=== PATIENT | female | born 1995 | race Caucasian/White ===

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

== ENCOUNTER 2017-05-21 20:01 | Emergency (ER) | payer OTHER ==
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
[2017-05-21 22:11] VITALS: BP 132/77
== END 2017-05-21 22:12 | disposition home or self-care (01) ==
LOC: ER 20:01
DX: S43.492A Other sprain of left shoulder joint, initial encounter (principal); S16.1XXA Strain of muscle, fascia and tendon at neck level, initial encounter; M79.7 Fibromyalgia; V46.0XXA Car driver injured in collision with other nonmotor vehicle in nontraffic accident, initial encounter

== ENCOUNTER 2019-04-12 02:18 | Inpatient (IN) ==
[2019-04-12 03:40] LABS: Cocaine Ur Negative (NEGATIVE); Urine Barbiturate Negative (NEGATIVE); Urine Benzodiazepines Negative (NEGATIVE); Urine Opiates Negative (NEGATIVE); Urine PCP Negative (NEGATIVE); Urine THC Negative (NEGATIVE)
[2019-04-12] MEDS ORDERED: RINGER'S SOLUTION,LACTATED 1,000 ML IV ONE (04:51)
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
[2019-04-12] MEDS ORDERED: OXYTOCIN 20 UNITS in RINGER'S SOLUTION,LACTATED 1,000 ML IV ONE (06:20)
[2019-04-12] MEDS: RINGER'S SOLUTION,LACTATED 1,000 ML IV PRN ×2 (06:40→08:00)
[2019-04-12] MEDS ORDERED: ceFAZolin SODIUM 1 GM VIAL ONE (06:47)
--- NOTE | 2019-04-12 07:02 | ANES ---
Anesthesia Pre Procedure Eval HOME MEDICATIONS valacyclovir 1 gram tablet 1,000 mg PO DAILY #30 tab 02/07/18 [Last Taken 04/11/19] Yxx026/FA/Omega3/Dha/Fish Oil [ Gummies] 1 ea PO DAILY 08/25/18 [Last Taken Unknown] Allergies/Adverse Reactions: Allergies Allergy/AdvReac Type Severity Reaction Status Date / Time amoxicillin Allergy Mild Swelling Verified 04/12/19 06:58 of Face latex Allergy Mild Hives Verified 04/12/19 06:58 marijuana Allergy Mild erythema, Verified 04/12/19 06:58 itching Penicillins Allergy Mild Hives Verified 04/12/19 06:58 - Planned Procedure Planned Procedure: RASH, HASN'T FELT BABY MOVE Medication List Reviewed:: Yes Allergies Verified: Yes Medical History (Last Reviewed 04/12/19 @ 07:01 by Matheus Vazquez CRNA) Anxiety and depression Onset Date: Unknown EDS (Isai-Danlos syndrome) Onset Date: ~2015 Endometriosis Onset Date: Unknown Fainting episodes Onset Date: Unknown Fibromyalgia Onset Date: Unknown Genital herpes Onset Date: ~2017 Heart murmur Onset Date: Unknown History of hysteroscopy Onset Date: ~07/07/18 laparoscopic tx of endometriosis Migraine Mitral valve prolapse Onset Date: Unknown Ovarian cyst Onset Date: Unknown bilateral UTI (urinary tract infection) Oligohydramnios Onset Date: ~2015 delivery (maternal condition) Onset Date: ~2015 Surgical History (Last Reviewed 04/12/19 @ 07:01 by Matheus Vazquez CRNA) H/O arthroscopic knee surgery (Acute) right Hx of tonsillectomy (Acute) H/O section Onset Date: ~11/11/15 Hx of cholecystectomy Onset Date: ~06/26/18 Family History (Last Reviewed 04/12/19 @ 07:01 by Matheus Vazquez CRNA) Father none Mother Depression Endometriosis Isai-Danlos syndrome Grandmother CVA (cerebral vascular accident) Grandfather Diabetes maternal Grandfather Myocardial infarction paternal Sister Endometriosis - Family Anesthesia History Family History:: no untoward family reactions to anesthesia, no familial bleeding tendencies, no family history of clotting disorders, no family history of premature - Airway/Neck/Teeth Within Normal Limits:: Yes Teeth Condition: intact Neck Exam: full range of motion Mallampatti Score: 2 Thyromental (T-M) distance: > 6 cm Mandibulo Hyoid distance: > 3 cm - Respiratory Respiratory Physical: lungs clear Smoking Status: Never smoker Sleep Apnea currently treated: No Sleep Apnea by current assessment: No - Cardiovascular Tolerate Activity: Good Heart Sounds: S1 & S2, Regular - Gastrointestinal NPO since: 2399 - Anesthesia Assessment and Plan ASA Class: PS, II, E Anesthesia Type Plan: Block - Bilateral TAP block for post op pain relief, Spinal
[2019-04-12] MEDS ORDERED: BUPIVACAINE HCL/EPINEPHRINE 50 ML VIAL IJ ONE (07:06)
[2019-04-12] MEDS ORDERED: SENNOSIDES 8.6 MG TABLET PO PRN (09:01)
[2019-04-12] MEDS ORDERED: ACETAMINOPHEN 325 MG TABLET PO PRN (09:01)
[2019-04-12] MEDS ORDERED: ONDANSETRON HCL/PF 2 MG/ML VIAL IV PRN (09:01)
[2019-04-12] MEDS ORDERED: SIMETHICONE 80 MG TAB.CHEW PO PRN (09:01)
[2019-04-12] MEDS ORDERED: BISACODYL 10 MG SUPP.RECT RC PRN (09:01)
--- NOTE | 2019-04-12 09:07 | OR ---
Operative Report - Dictated Report Narrative: Indication: 24-year old 2 para 1 at 38 3/7 weeks with prior section presents to labor and delivery in labor. status: Planned Pre Operative Diagnosis: 38 3/7 weeks intrauterine . Prior section. Labor. Post Operative Diagnosis: Same. Procedure: Repeat low transverse section. Abdominal scar revision -17 cm Surgeon: James Malagon DO Pelletizer Tender: OR Staff Anesthesia: Spinal, TAP block Estimated Blood Loss: 400 mL Urine Output: 300 mL clear urine Fluids Replacement: 1500 mL Drains: Mccrary to gravity Surgical Complications: None Specimens: Placenta to freezer Findings: Male born in cephalic presentation at 0807 on 04/12/2017 with Apgars 9 and 9, weight 3339g with nuchal cord x3. Normal uterus, tubes, ovaries. Dense thick fibrous scar tissue on the anterior abdominal fascia. Omental adhesions to the anterior peritoneal surface. Technique: The patient was taken to the operating room and placed in dorsal supine position with a left lateral tilt. After adequate spinal anesthesia, mccrary catheter inserted, SCDs placed, and 2 g of Ancef given preoperatively, the previous scar was excised in an elliptical fashion and the abdominal cavity was entered using sharp and blunt dissection. Two rolled laps were placed in the pericolic gutters on either side of the uterus. A transverse incision was made in the lower uterine segment and extended laterally and upwardly with digital traction. Clear fluid was noted upon amniotomy. The infant was delivered easily. The cord was clamped and cut and was handed off to awaiting mounter flutes and piccolos. The placenta was allowed to deliver spontaneously. The uterus was cleared of clot and debris. Uterine incision was closed with 0 Vicryl using a running stitch. A second imbricating layer was placed. Excellent hemostasis was noted. The rolled laps were removed from the abdominal cavitiy. The peritoneum was closed with a running 3-0 Monocryl. The same suture was used to approximate the rectus and pyramidalis muscles. The fascia was closed with a running 0 Vicryl. The subcutaneous layer was closed with a running 3-0 Monocryl. The same suture was used to approximate the subdermal layer. The skin was closed with a running 4-0 Monocryl and Dermabond. Sponge, lap, needle, and instrument count were correct x 2. Disposition: To post anesthesia care unit in good condition History for MU History for MU Definition: * The number of deliveries resulting in a live the patient experienced prior to current hospitalization * The previous delivery of live twins or any live multiple gestation is considered one live event. *If primagravida or nulliparous is documented select zero for the number of previous live births. Live Events: Live Events: 1
--- NOTE | 2019-04-12 09:22 | ANES ---
Post Anesthesia Discharge - Transfer of Care Transfer of Care handoff given to nurse: Yes - Discharge from PACU Discharge from PACU when meets criteria: Yes - Alert and comfortable
--- NOTE | 2019-04-12 09:23 | ANES ---
Anesthesia Procedure Note Procedure Note: ANESTHESIA PROCEDURE NOTE Date of Procedure: [04/12/2019 Time of procedure: 9:05 AM. Performed by: DESHAUN Jones CRNA, MSN Rn Acls: Tamara Rodas RN. Preprocedure diagnosis: Post section pain. Post procedure diagnosis: Same. Procedure: Bilateral TAP block Indications: Post section pain relief. Findings: See below. Details of the procedure: The patient was brought to PACU and placed in the supine position. The patient was prepped with chlorhexidine and using ultrasound guidance the 3 abdominal muscular planes were identified and lidocaine 1% was infiltrated to the skin of the intended injection site. Under ultrasound guidance the the internal oblique and transverse this abdominis muscle layers were approached with visualization of a 4 inch block needle until the tip of the needle rested in the plane between the muscles. 25 mL bupivacaine 0.25% with 1-200,000 epinephrine was injected and the procedure was repeated on the other side. Please see radiology/ultrasound report for details and images of the procedure. EBL: 0 Fluids: N/A. Specimen: N/A. Post procedure condition: The patient tolerated the procedure well. No complications were noted. Thank you for this consultation. Matheus Vazquez CRNA, ARNP, MSN
--- NOTE | 2019-04-12 09:33 | ANES ---
Post Anesthesia Assessment - Vital Signs Vitals: Last Vital Signs Temp 36.3 C 04/12/19 09:25 Pulse 95 04/12/19 09:25 Resp 18 04/12/19 09:25 BP 126/73 04/12/19 09:25 Pulse Ox 100 04/12/19 09:25 Airway Patency: Normal - Mental Status Level Of Consciousness: Awake, Alert, Appropriate - Pain Level Pain Score: 0 - N/V Assessment Nausea/Vomiting Presence: None Dehydration:: No
[2019-04-12] MEDS: IBUPROFEN 800 MG TABLET PO PRN ×2 (10:35→17:10)
[2019-04-12] MEDS: oxyCODONE HCL/ACETAMINOPHEN 1 TAB TABLET PO PRN ×4 (10:36→20:42)
[2019-04-12] MEDS: DOCUSATE SODIUM 100 MG CAPSULE PO SCH ×2 (12:39→20:41)
[2019-04-12] MEDS: ENOXAPARIN SODIUM 40 MG/0.4 ML SYRG SC SCH (17:07)
[2019-04-12] MEDS ORDERED: hydrOXYzine PAMOATE 50 MG CAPSULE PO PRN (23:09)
--- NOTE | 2019-04-12 23:13 | PN ---
Kenia Note - Interim Date: 04/12/19 Time: 23:11 Narrative: 04/12/19 23:11 Patient complains of itching on the palms of hands and soles of feet tonight. Did not have before today. Possible late onset IHCP. Will check CMP and give hydroxizine 25mg PRN. If no relief then will consider ursodiol.
[2019-04-12 23:58] LABS: Anion Gap 13.4 mmol/L (6.8-13.8); BUN/Creatinine Ratio 8.5 (9.0-21.6); Bilirubin, Total 0.2 mg/dL (0.0-1.1); Ca. Corrected For Albumin 9.3 mg/dL (8.4-10.2); Carbon Dioxide 24.3 mmol/L (24-32.6); Potassium 3.7 mmol/L (3.4-4.6); Total Protein 5.3 gm/dL (6.2-8.2)
[2019-04-13] MEDS: IBUPROFEN 800 MG TABLET PO PRN ×4 (01:21→23:23)
[2019-04-13] MEDS: oxyCODONE HCL/ACETAMINOPHEN 1 TAB TABLET PO PRN ×4 (01:21→23:22)
[2019-04-13] MEDS ORDERED: hydrOXYzine PAMOATE 25 MG CAPSULE ONE (01:28)
[2019-04-13] MEDS: hydrOXYzine PAMOATE 25 MG CAPSULE PO PRN ×2 (02:12→11:22)
[2019-04-13] MEDS ORDERED: ceFAZolin SODIUM 1 GM VIAL IV PRN (06:00)
[2019-04-13] MEDS: DOCUSATE SODIUM 100 MG CAPSULE PO SCH ×2 (08:41→21:13)
[2019-04-13] MEDS: PRENATAL VITS96/IRON FUM/FOLIC 1 TAB TABLET PO SCH (09:48)
--- NOTE | 2019-04-13 15:32 | PN ---
Subjective - Date and Time Seen Date: 04/13/19 Time: 15:31 Objective - Vitals Vitals: Last Vital Signs Temp 36.8 C 04/13/19 08:51 Pulse 80 04/13/19 14:55 Resp 16 04/13/19 14:55 BP 119/69 04/13/19 14:55 Pulse Ox 98 04/13/19 14:55 Patient denies complaints. Tolerating regular diet. Ambulating without difficulty. Pain well controlled. Lochia wnl. Abdomen - soft, appropriately tender Incision -clean, dry, intact uterus - firm, at umbilicus -1 no calf tenderness Impression: Post op day #1 s/p repeat section. Plan: Continue routine post-operative/ care - Abnormal Lab Findings Abnormal Lab Findings: Abnormal Lab Results 04/12/19 Range/Units 23:32 BUN/Creatinine Ratio 8.5 L (9.0-21.6) ALT 14 L (19-67) U/L Alkaline Phosphatase 171 H (50-170) U/L Total Protein 5.3 L (6.2-8.2) gm/dL Albumin 2.0 L (3.4-5.0) gm/dl Cauti Physician Documentation - Urinary Catheter Management Urethral (Ramos) Date of Insertion: 04/12/19 Time of Insertion: 07:45 Assessment/Plan - Problems/Diagnosis (1) Previous delivery affecting Problem: Acute (2) First stage of labor established Problem: Acute
[2019-04-13] MEDS: ENOXAPARIN SODIUM 40 MG/0.4 ML SYRG SC SCH (16:54)
[2019-04-14] MEDS: hydrOXYzine PAMOATE 25 MG CAPSULE PO PRN ×2 (00:49→17:52)
[2019-04-14] MEDS: PRENATAL VITS96/IRON FUM/FOLIC 1 TAB TABLET PO SCH ×2 (10:07→13:33)
[2019-04-14] MEDS: DOCUSATE SODIUM 100 MG CAPSULE PO SCH ×3 (10:07→20:47)
[2019-04-14] MEDS: IBUPROFEN 800 MG TABLET PO PRN (13:32)
--- NOTE | 2019-04-14 13:34 | PN ---
Subjective - Date and Time Seen Date: 04/14/19 Time: 13:27 Objective - Vitals Vitals: Last Vital Signs Temp 36.9 C 04/14/19 00:42 Pulse 86 04/14/19 09:51 Resp 16 04/14/19 09:51 BP 125/82 04/14/19 09:51 Pulse Ox 97 04/14/19 00:42 Patient denies complaints. Ambulating well. Tolerating regular diet. Pain well controlled. Breast-feeding Lochia wnl. Abdomen - soft, appropriately tender Incision -clean, dry, intact uterus - firm, at umbilicus -2 no calf tenderness Impression: Post op day #2 s/p repeat section. Pruritus from yesterday resolved. Plan: Continue routine post-operative/ care Cauti Physician Documentation - Urinary Catheter Management Urethral (Ramos) Date of Insertion: 04/12/19 Time of Insertion: 07:45 Assessment/Plan - Problems/Diagnosis (1) Previous delivery affecting Problem: Acute (2) First stage of labor established Problem: Acute
[2019-04-14] MEDS: ENOXAPARIN SODIUM 40 MG/0.4 ML SYRG SC SCH (17:45)
[2019-04-15] MEDS: IBUPROFEN 800 MG TABLET PO PRN (04:48)
[2019-04-15] MEDS: PRENATAL VITS96/IRON FUM/FOLIC 1 TAB TABLET PO SCH (08:38)
[2019-04-15] MEDS: DOCUSATE SODIUM 100 MG CAPSULE PO SCH (08:38)
[2019-04-15] MEDS ORDERED: VALACYCLOVIR 1000 MG PO SCH (09:00)
--- NOTE | 2019-04-15 14:26 | PN ---
Subjective - Date and Time Seen Date: 04/15/19 Time: 14:20 Objective - Vitals Vitals: Last Vital Signs Temp 36.0 C 04/15/19 07:05 Pulse 71 04/15/19 07:05 Resp 18 04/15/19 07:05 BP 100/55 04/15/19 07:05 Pulse Ox 98 04/15/19 07:05 Patient denies complaints. Ambulating without difficulty. Tolerating regular diet. Pain well controlled. Lochia wnl. Breast-feeding Abdomen - soft, appropriately tender Incision -clean, dry, intact uterus - firm, at umbilicus -3 no calf tenderness Impression: Post op day #3 s/p repeat section. Plan: Routine discharge instructions Cauti Physician Documentation - Urinary Catheter Management Urethral (Ramos) Date of Insertion: 04/12/19 Time of Insertion: 07:45 Assessment/Plan - Problems/Diagnosis (1) Previous delivery affecting Problem: Acute (2) First stage of labor established Problem: Acute
[2019-04-15 18:01] VITALS: BP 118/74
== END 2019-04-15 14:05 | disposition home or self-care (01) | DRG 787 ==
LOC: OBCLINIC 02:18 → OB 06:29
PROVIDERS: ADMIT Obstetrics & Gynecology; ATTEND Obstetrics & Gynecology
CPT/HCPCS: 36415; 59025; 80053; 80307